=== PATIENT | female | born 1950 ===

== ENCOUNTER 2019-02-26 08:12 | Outpatient (CLI) | payer MEDICARE ==
--- NOTE | 2019-02-26 14:12 | NM ---
NUCLEAR MEDICINE BRAIN IMAGING: HISTORY: Parkinson's disease TECHNIQUE: A Katerin scan with axial tomographic images of the brain was obtained 3 hours following the intravenous administration of 5mCi I-123 Ioflupane. The patient was pretreated with 130 mg of oral potassium iodide 1 hour prior to the injection. FINDINGS: There is loss of normal symmetric comma shaped shaped uptake in the striata bilaterally. IMPRESSION: Parkinsonian syndrome. (Parkinsonian syndromes include Parkinson's disease, multiple system atrophy, progressive supranuclea r palsy, dementia with Lewy bodies and cortical basal degeneration).
== END 2019-02-26 08:13 | disposition home or self-care (01) ==
LOC: NM 08:12
PROVIDERS: ATTEND Psychiatry & Neurology Neurology
DX: G20 Parkinson's disease (principal)
CPT/HCPCS: 78607; A9584